=== PATIENT | male | born 1940 ===

== ENCOUNTER 2023-05-05 13:27 | Emergency (ER) | payer MEDICARE, SELFPAY ==
[2023-05-05 13:29] VITALS: BP 135/86
[2023-05-05 13:42] LABS: % Basophils 0.8 % (0-2); % Eosinophils 2.8 % (0-6); % Immature Granulocytes 0.8 % (0-0.5); % Lymphocytes 46.9 % (20.5-51.1); % Monocytes 11.5 % (1.7-9.3); % Neutrophils 37.2 % (42.2-75.2); Absolute Eosinophils 0.1 10^3/uL (0-0.7); Absolute Lymphocytes 2.4 10^3/uL (1.2-3.4); Absolute Monocytes 0.6 10^3/uL (0.1-0.6); Absolute Neutrophils 1.9 10^3/uL (1.4-6.5); Hematocrit 43.1 % (39.0-52.0); Hemoglobin 15.1 g/dL (13.0-18.0); Mean Corpuscular Hgb 30.4 pg (27.0-31.0); Mean Corpuscular Volume 86.7 fL (80.0-94.0); Mean Platelet Volume 9.3 fL (7.4-10.4); Nucleated Red Blood Cells % 0 % (-); Platelet Count 231 10^3/uL (130-400); Red Blood Cell Count 4.97 10^6/uL (4.70-6.10); Red Cell Dist. Width 14.2 % (11.5-14.5); White Blood Cell Count 5.1 10^3/uL (4.8-10.8)
--- NOTE | 2023-05-05 14:21 | ED.GENMED ---
History of Present Illness
General
Chief Complaint: Abdominal Symptoms
Time Seen by Provider: 05/05/23 14:21
Travel History
Have you had any contact with someone who has COVID-19?: No
Do you have any symptoms of coronavirus? Fever > 100 degrees, chills, cough, shortness of breath, sore throat, loss of taste or smell, muscle aches, or headache?: No
History of Present Illness
History of Present Illness:
83-year-old male with history of hypertension, hyperlipidemia, and att-gihhorp-stfihzwfj diabetes presents to the emergency department for evaluation of nausea, vomiting, and diarrhea for the past 2 to 3 days. Began after eating essentially
uncooked pancakes at a restaurant on Friday. Vomiting has improved however diarrhea is persistent. Denies any abdominal pain at the current time. No fevers or chills. Feeling short of breath today and generally fatigued.
Review of Systems
Review of Systems
Allergies reviewed?: Yes
All Other Systems: ROS reviewed and negative except as documented in HPI and ROS
Phy Exam
Physical Exam
Physical Exam:
GEN: Well appearing, NAD, WDWN
Eyes: PERRLA, EOMs intact, no scleral icterus
HENT: NCAT, oral mucosa moist
Lungs: CTAB, no wheezes, rales, rhonchi, normal chest wall excursion
Cardiac: RRR, no M/R/G, no peripheral edema. Radial pulses 2+ bilat
Abdomen: S, NT, ND, NABS, no masses or hepatosplenomegaly
Neuro: AO x 3
MSK: No gross deformity or ecchymosis.
Skin: No rashes, petechiae. Normal color, no pallor or jaundice.
Psych: Calm, cooperative, proper hygiene
Course
Orders/Labs/Results
Orders:
Orders
05/05/23 13:36
Basic Metabolic Panel Urgent
Complete Blood Count/With Diff Urgent
Lipase Urgent
05/05/23 14:37
0.9% Sodium Chloride 1000 ml [Nss] 1,000 ml IV BOLUS
05/05/23 15:33
Wbliq-Ieeo-Qxjhoug Urgent
Potassium Urgent
05/05/23 16:50
Stool Culture Urgent
DESI Source: Feces/Stool
Specimen Description:
Date Specimen was Collected: 05/05/23
Time Specimen was Collected: 16:43
Abnormal Lab Results
05/05/23 05/05/23
13:36 15:33
Immature Gran % 0.8 H %
(0-0.5)
Neutrophils % 37.2 L %
(42.2-75.2)
Monocytes % 11.5 H %
(1.7-9.3)
Potassium 3.3 L mmol/L
(3.5-5.1)
Chloride 108 H mmol/L
(98-107)
Carbon Dioxide 18 L mmol/L
(22-30)
BUN 35 H mg/dl
(9-20)
Glucose 268 H mg/dl
(70-99)
Direct Bilirubin 0.6 H mg/dl
(0.0-0.4)
05/05/23 13:36
05/05/23 15:33
Vital Signs
Initial and Last Documented VS:
Initial Vital Signs
Temp Pulse Resp BP Pulse Ox
97.7 F 98 18 135/86 98
05/05/23 13:29 05/05/23 13:29 05/05/23 13:29 05/05/23 13:29 05/05/23 13:29
Last Documented Vital Signs
Temp Pulse Resp BP Pulse Ox
97.7 F 88 16 133/81 96
05/05/23 13:29 05/05/23 17:00 05/05/23 17:00 05/05/23 17:00 05/05/23 17:00
MDM/Problems Addressed
MDM/Problems Addressed:
83-year-old male presents with symptoms consistent with acute gastroenteritis. Could be food based versus viral. Patient was able to provide a stool specimen for culture, did not feel it was appropriate to treat empirically given that he does
report some improvement in symptoms. Given 1 L normal saline for IV fluid resuscitation, tolerating p.o. fluids have discharge. No abdominal tenderness on exam to suggest need for CT imaging at this time
*Critical Care Note
Total Time (30-74mins, 75-104mins- exclusive of procedures): Not Applicable
ED Attending Note
-
Portions of this chart may have been created with voice recognition software.� Occasional wrong word or��sound alike� substitutions may have occurred due to the inherent limitations of voice recognition software.
Discharge Plan
Departure
Patient Disposition: Home (Routine Discharge)
Date of Disposition: 05/05/23
Time of Disposition: 17:06
Patient with high blood pressure during this ER visit?: No
Discharge Problem:
Gastroenteritis
Instructions: Nausea and Vomiting, Adult (DC)
Prescriptions:
New
ondansetron 4 mg tablet,disintegrating
4 mg PO TIDPRN PRN (Reason: nausea/vomiting) Qty: 10 0RF
No Action
omeprazole 40 mg Capsule,Delayed Release(Dr/Ec)
40 mg PO DAILY
glimepiride 4 mg Tablet
4 mg PO BID
rosuvastatin 10 mg Tablet
10 mg PO DAILY
metformin 500 mg Tablet
1,000 mg PO BID
tramadol 50 mg Tablet
50 mg PO Q6H
Patient Comments:
03/17/2023, patient filled this medication on 03/10/2023 for 20 tablets according to PDMP.
acetaminophen [Tylenol Extra Strength] 500 mg Tablet
1,000 mg PO Q6H
hydrochlorothiazide 25 mg Tablet
25 mg PO DAILY PRN (Reason: swelling)
ibuprofen 600 mg Tablet
600 mg PO Q6H
lisinopril 2.5 mg tablet
2.5 mg PO HS
Referrals:
Marcus Tidwell DO [Family Provider] -
Interventions
Interventions:
*Risk Screen - Suicide Last Done: 05/05/23 13:29
*General Assessment Last Done: 05/05/23 13:29
*Neglect/Abuse Screening Last Done: 05/05/23 13:29
ED- Fall Risk Assessment Last Done: 05/05/23 15:04
*ED COVID-19 Vaccine History Last Done: 05/05/23 13:29
*Nursing Disposition Last Done: 05/05/23 17:25
PX-Gbsiox-Ucutamfriu Assessment Last Done: 05/05/23 15:04
Discharge Date and Time
Discharge Date/Time: 05/05/23 17:27
[2023-05-05 14:25] VITALS: BMI 32.5
[2023-05-05 14:25] LABS: Blood Urea Nitrogen 35 mg/dl (9-20); Calcium 8.8 mg/dl (8.4-10.2); Carbon Dioxide 18 mmol/L (22-30); Chloride 108 mmol/L (98-107); Glucose 268 mg/dl (70-99); Sodium 136 mmol/L (135-145); eGFR > 60.00
[2023-05-05 14:41] LABS: Lipase 97 U/L (23-300)
[2023-05-05 15:02] VITALS: BP 139/77
[2023-05-05] MEDS: NSS 1000 IV (15:23)
[2023-05-05 15:59] LABS: ALT (SGPT) 23 U/L (0-50); AST (SGOT) 39 U/L (17-59); Alkaline Phosphatase 78 U/L (38-126); Direct Bilirubin 0.6 mg/dl (0.0-0.4); Potassium 3.3 mmol/L (3.5-5.1); Total Bilirubin 0.6 mg/dl (0.2-1.3)
[2023-05-05 16:00] VITALS: BP 130/80
[2023-05-05 17:00] VITALS: BP 133/81
== END 2023-05-05 17:27 | disposition home or self-care (01) ==
LOC: EMR 13:27
PROVIDERS: Physician Assistant; EMERGENCY PHYSICIAN Emergency Medicine; FAMILY PHYSICIAN Family Medicine
DX: K52.9 Noninfective gastroenteritis and colitis, unspecified (principal); I10 Essential (primary) hypertension; E78.5 Hyperlipidemia, unspecified; E11.9 Type 2 diabetes mellitus without complications
CPT/HCPCS: 99284; 96360; 80048; 80076; 83690; 84132; 85025; 87045; 87046; 87427

== ENCOUNTER 2023-06-06 22:14 | Inpatient (IN) | payer MEDICARE, SELFPAY ==
[2023-06-06 15:59] VITALS: BP 140/82
[2023-06-06 16:19] LABS: % Basophils 0.3 % (0-2); % Eosinophils 1.1 % (0-6); % Immature Granulocytes 0.4 % (0-0.5); % Lymphocytes 16.8 % (20.5-51.1); % Monocytes 8.3 % (1.7-9.3); % Neutrophils 73.1 % (42.2-75.2); Absolute Basophils 0.1 10^3/uL (0-0.2); Absolute Eosinophils 0.2 10^3/uL (0-0.7); Absolute Immature Granulocytes 0.1 10^3/uL (0-0.05); Absolute Lymphocytes 2.5 10^3/uL (1.2-3.4); Absolute Monocytes 1.2 10^3/uL (0.1-0.6); Hematocrit 39.5 % (39.0-52.0); Hemoglobin 13.6 g/dL (13.0-18.0); Mean Corp Hgb Conc. 34.4 g/dL (33.0-37.0); Mean Corpuscular Hgb 30.3 pg (27.0-31.0); Mean Platelet Volume 9.3 fL (7.4-10.4); Nucleated Red Blood Cells % 0 % (-); Platelet Count 251 10^3/uL (130-400); Red Blood Cell Count 4.49 10^6/uL (4.70-6.10); Red Cell Dist. Width 14.6 % (11.5-14.5)
[2023-06-06 16:35] LABS: ALT (SGPT) 11 U/L (0-50); AST (SGOT) 16 U/L (17-59); Albumin 4.3 g/dl (3.5-5.0); Alkaline Phosphatase 66 U/L (38-126); Blood Urea Nitrogen 16 mg/dl (9-20); Calcium 9.7 mg/dl (8.4-10.2); Carbon Dioxide 24 mmol/L (22-30); Chloride 97 mmol/L (98-107); Glucose 261 mg/dl (70-99); Sodium 135 mmol/L (135-145); Total Bilirubin 1.2 mg/dl (0.2-1.3); Total Protein 7.4 g/dl (6.3-8.2); eGFR > 60.00
[2023-06-06 16:48] LABS: Lipase 609 U/L (23-300)
[2023-06-06 17:18] VITALS: BP 144/87
[2023-06-06] MEDS: NSS 1000 IV ×3 (17:21→23:54)
[2023-06-06 17:25] VITALS: BMI 34.1
--- NOTE | 2023-06-06 17:31 | ED.GENMED ---
History of Present Illness
General
Chief Complaint: Abdominal Symptoms
Source: patient and records
Exam Limitations: none
Time Seen by Provider: 06/06/23 16:51
Nursing documentation reviewed up to this point in time: agreed with
Travel History
Have you had any contact with someone who has COVID-19?: No
Do you have any symptoms of coronavirus? Fever > 100 degrees, chills, cough, shortness of breath, sore throat, loss of taste or smell, muscle aches, or headache?: No
History of Present Illness
History of Present Illness:
83-year-old male presents with abdominal pain and vomiting seen here few weeks ago with diarrhea dehydration has had no fevers but he has had chills, has gallbladder removed, states he has been or keep any fluids down, pain is mild to moderate his
mid upper abdomen no chest pains, no problem urinating, states his lips feel dry
Past History
Past History
ED Past Medical History: GERD, Hypercholesterolemia and NIDDM; Negative HTN
ED Past Surgical History: Cholecystectomy
Social History
Tobacco: Non-smoker
Alcohol: None
Drug: None
Living: with family
Employment: Retired
Review of Systems
Review of Systems
All Other Systems: Not applicable
Constitutional: Reports fatigue and chills
EENT: Reports no symptoms
Respiratory: Reports no symptoms; Denies trouble breathing
Cardiac: Denies chest pain
ABD/GI: Reports abdominal pain, nausea and vomiting; Denies diarrhea or black stools
: Reports no symptoms
Musculoskeletal: Reports no symptoms
Skin: Reports no symptoms
Phy Exam
Physical Exam
Physical Exam:
Physical Exam
General: Uncomfortable appearing male
Neck: No jaw
Heart: s1/s2 regular rate and rhythm, no murmur. equal radial pulses.
Lungs: no acute respiratory distress. clear bilaterally
Abdomen: Soft mild left-sided tenderness
Neuro: alert and oriented. no focal neurological deficits
Skin: no rash
Psychiatric: well kept. interactive and cooperative
Extremities: no edema.
Course
Orders/Labs/Results
Orders:
Orders
06/06/23 16:03
EKG [Electrocardiogram (*1)] Urgent
Reason for Study: Abdominal Pain
EKG- Treatment ONCE
06/06/23 16:11
Complete Blood Count/With Diff Urgent
Comprehensive Metabolic Panel Urgent
Lipase Urgent
06/06/23 17:10
Blood Culture Q30M
DESI Source: Blood/Venous
Specimen Description:
06/06/23 17:20
0.9% Sodium Chloride 500 ml [Nss] 1,000 ml IV BOLUS
06/06/23 17:24
CT Abd/pel W Iv And Oral Contr Urgent
Comment:
Reason For Exam: pain fever vomiting lipase up
0.9% Sodium Chloride 1000 ml [Nss] 1,000 ml IV BOLUS
HYDROmorphone [Dilaudid] 0.5 mg IV NOW STA
Iohexol [Omnipaque] See Protocol PO NOW STA
Ondansetron Injectable [Zofran] 4 mg IV NOW STA
06/06/23 18:04
Lactic Acid Urgent
06/06/23 18:21
Blood Culture Q30M
DESI Source: Blood/Venous
Specimen Description:
06/06/23 19:59
0.9% Sodium Chloride 1000 ml [Nss] 1,000 ml IV BOLUS
Abnormal Lab Results
06/06/23
16:11
WBC 15.0 H 10^3/uL
(4.8-10.8)
RBC 4.49 L 10^6/uL
(4.70-6.10)
RDW 14.6 H %
(11.5-14.5)
Abs Immat Gran (auto) 0.1 H 10^3/uL
(0-0.05)
Absolute Neuts (auto) 11.0 H 10^3/uL
(1.4-6.5)
Absolute Monos (auto) 1.2 H 10^3/uL
(0.1-0.6)
Lymphocytes % 16.8 L %
(20.5-51.1)
Chloride 97 L mmol/L
(98-107)
Glucose 261 H mg/dl
(70-99)
AST 16 L U/L
(17-59)
Lipase 609 H U/L
(23-300)
06/06/23 16:11
06/06/23 16:11
Vital Signs
Initial and Last Documented VS:
Initial Vital Signs
Temp Pulse Resp BP Pulse Ox
97.4 F 97 16 140/82 98
06/06/23 15:59 06/06/23 15:59 06/06/23 15:59 06/06/23 15:59 06/06/23 15:59
Last Documented Vital Signs
Temp Pulse Resp BP Pulse Ox
98.1 F 112 25 178/106 93
06/06/23 19:30 06/06/23 21:15 06/06/23 21:15 06/06/23 21:00 06/06/23 21:18
*Critical Care Note
Total Time (30-74mins, 75-104mins- exclusive of procedures): Not Applicable
Update Note
Update Note:
Update, labs noted CT noted will require admission for pancreatitis
ED Attending Note
-
Portions of this chart may have been created with voice recognition software.� Occasional wrong word or��sound alike� substitutions may have occurred due to the inherent limitations of voice recognition software.
Discharge Plan
Departure
Patient Disposition: Admit
Date of Disposition: 06/06/23
Time of Disposition: 21:23
Presentation/result/management discussed w/ accepting MD/DO: Hospitalist
Patient with high blood pressure during this ER visit?: No
Condition: Good
Discharge Problem:
Acute pancreatitis
Prescriptions:
No Action
omeprazole 40 mg Capsule,Delayed Release(Dr/Ec)
40 mg PO DAILY
glimepiride 4 mg Tablet
4 mg PO BID
rosuvastatin 10 mg Tablet
10 mg PO DAILY
metformin 500 mg Tablet
1,000 mg PO BID
tramadol 50 mg Tablet
50 mg PO Q6H
Patient Comments:
03/17/2023, patient filled this medication on 03/10/2023 for 20 tablets according to PDMP.
acetaminophen [Tylenol Extra Strength] 500 mg Tablet
1,000 mg PO Q6H
hydrochlorothiazide 25 mg Tablet
25 mg PO DAILY PRN (Reason: swelling)
ibuprofen 600 mg Tablet
600 mg PO Q6H
lisinopril 2.5 mg tablet
2.5 mg PO HS
ondansetron 4 mg tablet,disintegrating
4 mg PO TIDPRN PRN (Reason: nausea/vomiting) Qty: 10 0RF
Referrals:
Marcus Tidwell DO [Family Provider] -
Interventions
Interventions:
*Risk Screen - Suicide Last Done: 06/06/23 15:59
*General Assessment Last Done: 06/06/23 15:59
*Neglect/Abuse Screening Last Done: 06/06/23 15:59
ED- Fall Risk Assessment Last Done: 06/06/23 17:02
*ED COVID-19 Vaccine History Last Done: 06/06/23 17:25
YZ-Zkwaxs-Baexqecuzg Assessment Last Done: 06/06/23 17:25
[2023-06-06 18:00] VITALS: BP 160/90
[2023-06-06] MEDS: DILAUDID 0.5 MG IV ×2 (18:09→23:24)
[2023-06-06] MEDS: ZOFRAN 4 MG IV (18:09)
[2023-06-06] MEDS: OMNIPAQUE 50 ML PO (18:14)
--- NOTE | 2023-06-06 18:15 | EDRN ---
POX was low 87-88% on room air so pt placed on oxygen at 2lpm via NC at this time.
[2023-06-06 19:00] VITALS: BP 164/85
[2023-06-06 19:05] LABS: Lactic Acid 1.3 mmol/L (0.7-2.0)
[2023-06-06 20:00] VITALS: BP 176/107
[2023-06-06 21:00] VITALS: BP 178/106
--- NOTE | 2023-06-06 22:04 | HPS.HSE ---
Family Physician
-
Family Physician: Marcus Tidwell
Chief Complaint
-
vomiting, abdominal pain
History of Present Illness
83-year-old male past medical history of coronary artery disease, hypertension, obstructive sleep apnea, hypercholesterolemia, GERD, diabetes, diabetic neuropathy, osteoarthritis, skin cancer status post multiple excisions, amaurosis fugax, Romero's
palsy, obesity, presents with vomiting for the past 2 days and abdominal pain bilaterally below his rib cage. He had chills but denies any fever. He denies any diarrhea. He has been a little bit constipated. He has not eaten at all in the past 2
days.
He had pancreatitis 6 years ago of unknown etiology. He also had his gallbladder taken out although he does not remember why. He denies any history of gallstones. He denies any alcohol use. He denies any new medications.
He denies smoking or any drugs.
Patient is scheduled for left knee surgery in the near future. He is supposed to take ibuprofen twice a day but daughter suspects he has been taking more than that.
Medical History
Past Medical History
Past Medical History: Reports Other (coronary artery disease, hypertension, obstructive sleep apnea, hypercholesterolemia, GERD, diabetes, diabetic neuropathy, osteoarthritis, skin cancer status post multiple excisions, amaurosis fugax, Romero's
palsy, obesity)
Past Surgical History: Reports Cholecystectomy and Orthopedic
Social History
Tobacco: Non-smoker
Alcohol: None
Drug: None
Family History
Family History: Not pertinent
Allergies / Home Medications
Allergies reflects when Allergies were last updated in [facility].
Home Medications with original date entered in [facility]
Allergy/Medication List:
Allergies
Allergy/AdvReac Type Severity Reaction Status Date / Time
Penicillins Allergy Rash Verified 06/06/23 15:59
Oxycodone AdvReac hallucinati Uncoded 06/06/23 15:59
ons
Home Medications
glimepiride 4 mg tablet 4 mg PO BID Diabetes 10/18/22
omeprazole 40 mg capsule,delayed release 40 mg PO DAILY Gastrointestinal Issue 10/18/22
rosuvastatin 10 mg tablet 10 mg PO DAILY High Cholesterol 01/01/23
acetaminophen 500 mg tablet (Tylenol Extra Strength) 1,000 mg PO BID 03/17/23
lisinopril 2.5 mg tablet 2.5 mg PO DAILY Blood Pressure 03/17/23
metformin 500 mg tablet 1,000 mg PO BID Diabetes 03/17/23
ondansetron 4 mg disintegrating tablet 4 mg PO TIDPRN PRN nausea/vomiting #10 tabs 05/05/23
ibuprofen 200 mg tablet (Advil) 400 mg PO BID 06/06/23
Review of Systems
-
History Source: Patient
A 12 point ROS was completed and negative except as noted: Yes
Constitutional: Reports No Symptoms
EENT: Reports No Symptoms
Respiratory: Reports No Symptoms
Cardiac: Reports No Symptoms
Abdomen/GI: Reports See HPI
: Reports No Symptoms
Musculoskeletal: Reports No Symptoms
Skin: Reports No Symptoms
Neurological: Reports No Symptoms
Endocrine: Reports No Symptoms
Hematologic/Lymphatic: Reports No Symptoms
Psych: Reports No Symptoms
Physical Exam
Vital Signs
Vital Signs
Temp Pulse Resp BP Pulse Ox
98.1 F 112 25 178/106 93
06/06/23 19:30 06/06/23 21:15 06/06/23 21:15 06/06/23 21:00 06/06/23 21:18
Physical Exam
General: Well Developed, Well Nourished and No Apparent Distress
HEENT: NormoCephalic, Moist mucous membranes and Atraumatic
Respiratory: Clear
Cardiac: S1/S2 and Regular Rhythm; No Murmur or Rub
GI: Soft, Non Distended, Normal Bowel Sounds and Tender (tender lower abdominal quadrants ); No Organomegaly
Rectal: Deferred by Provider
Musculoskeletal: No Clubbing, No Cyanosis and No Edema
Skin: No Rash
Neuro: Nonfocal/grossly intact
Laboratory Results
-
06/06/23 16:11
06/06/23 16:11
Laboratory Results
Lactic Acid Cancelled 06/06/23 18:38
Total Bilirubin 1.2 mg/dl (0.2-1.3) 06/06/23 16:11
AST 16 U/L (17-59) L 06/06/23 16:11
ALT 11 U/L (0-50) 06/06/23 16:11
Alkaline Phosphatase 66 U/L (38-126) 06/06/23 16:11
Lipase 609 U/L (23-300) H 06/06/23 16:11
Data Reviewed
-
Lab Data: Labs Reviewed by me
Old Records: Reviewed
Impression/Plan
-
IMPRESSION:
PLAN:
# Acute pancreatitis possibly secondary to NSAID use
# History of prior pancreatitis unclear etiology
-Lipase 600
-CT scan shows pancreatic tail acute interstitial pancreatitis
-N.p.o.
-IV fluids at 250 cc/hr
-Hold ibuprofen
-Zofran, Dilaudid as needed
-Check lipid panel
-Gi consulted
# Hyperglycemia
# Type 2 diabetes
-Hold metformin, glimepiride
-Insulin sliding scale
-Check A1c
History of cholecystectomy
Diabetic neuropathy
Coronary artery disease
Obstructive sleep apnea
Osteoarthritis
-Scheduled for left knee surgery in the near future
-Continue Tylenol
Essential hypertension
-Continue lisinopril
History of hypercholesterolemia
-Continue statin
GERD
-Continue omeprazole
Venous insufficiency
Nephrolithiasis
Chronic postnasal drip
Skin cancer status post multiple excisions
History of amaurosis fugax of left eye
History of Romero's palsy
Obesity
DNR/DNI
DVT prophylaxis�heparin
N.p.o.
[2023-06-06 22:46] LABS: HDL Cholesterol 44 mg/dl; LDL Cholesterol, Calculated 59 mg/dl; Total Cholesterol 124 mg/dl (50-199); Triglyceride 107 mg/dl (10-149); Very Low Density Lipoprotein 21 mg/dl (0-30)
--- NOTE | 2023-06-06 23:00 | PTCARENOTE ---
pt arrived to floor from ED via stretcher and ambulated to bed with a steady gait. Pt c/o 10/07 abdominal pain. BP elevated 160's/100's HR 110's. will administer pain medication and check BP again. pt oriented to room, call olivas with in reach. Will
review chart and follow plan of care.
[2023-06-06 23:08] VITALS: BMI 33.9
[2023-06-07 00:12] VITALS: BP 155/90
[2023-06-07] MEDS: DILAUDID 0.5 MG IV ×2 (03:05→08:52)
[2023-06-07 03:21] VITALS: BP 160/92
[2023-06-07] MEDS: NSS 1000 IV ×5 (03:31→20:32)
[2023-06-07] MEDS: ULTRAM 25 MG PO (04:43)
[2023-06-07 06:27] LABS: Glucose - Point of Care 213 mg/dl (70-99)
[2023-06-07 07:00] VITALS: BP 169/91
[2023-06-07] MEDS: NOVOLOG FLEXPEN-LOW RESISTANCE 2 UNITS SC ×2 (07:00→17:40)
[2023-06-07 07:19] LABS: % Basophils 0.3 % (0-2); % Eosinophils 1.3 % (0-6); % Immature Granulocytes 0.6 % (0-0.5); % Lymphocytes 15.1 % (20.5-51.1); % Monocytes 9.4 % (1.7-9.3); % Neutrophils 73.3 % (42.2-75.2); Absolute Eosinophils 0.2 10^3/uL (0-0.7); Absolute Immature Granulocytes 0.1 10^3/uL (0-0.05); Absolute Lymphocytes 2.3 10^3/uL (1.2-3.4); Absolute Monocytes 1.4 10^3/uL (0.1-0.6); Hematocrit 35.2 % (39.0-52.0); Mean Corp Hgb Conc. 34.1 g/dL (33.0-37.0); Mean Corpuscular Hgb 30.1 pg (27.0-31.0); Mean Corpuscular Volume 88.2 fL (80.0-94.0); Mean Platelet Volume 9.2 fL (7.4-10.4); Nucleated Red Blood Cells % 0 % (-); Platelet Count 235 10^3/uL (130-400); Red Blood Cell Count 3.99 10^6/uL (4.70-6.10); Red Cell Dist. Width 14.6 % (11.5-14.5)
[2023-06-07 07:45] LABS: ALT (SGPT) < 10 U/L (0-50); AST (SGOT) 18 U/L (17-59); Albumin 3.6 g/dl (3.5-5.0); Alkaline Phosphatase 68 U/L (38-126); Blood Urea Nitrogen 9 mg/dl (9-20); Calcium 8.5 mg/dl (8.4-10.2); Carbon Dioxide 25 mmol/L (22-30); Chloride 101 mmol/L (98-107); Estimated Creatinine Clearance > 125 ml/min; Glucose 216 mg/dl (70-99); Potassium 4.3 mmol/L (3.5-5.1); Sodium 131 mmol/L (135-145); Total Bilirubin 1.3 mg/dl (0.2-1.3); Total Protein 6.6 g/dl (6.3-8.2); eGFR > 60.00
[2023-06-07] MEDS: ZESTRIL 2.5 MG PO (08:51)
[2023-06-07] MEDS: CRESTOR 10 MG PO (08:51)
[2023-06-07] MEDS: PROTONIX 40 MG PO (08:51)
[2023-06-07] MEDS: TYLENOL 1000 MG PO ×2 (08:51→20:43)
[2023-06-07] MEDS: HEPARIN 5000 UNITS SC ×2 (08:52→20:39)
--- NOTE | 2023-06-07 09:25 | W.PN.HOSP.TC ---
Today's Communication/Plan
-
Continue IV fluids
Monitor hyponatremia
Continue sliding scale coverage may need to increase to moderate
Await GI input/unclear etiology to his pancreatitis
Changed to IV PPI
Assessment / Plan
Assessment / Plan
83-year-old male past medical history of coronary artery disease, hypertension, obstructive sleep apnea, hypercholesterolemia, GERD, diabetes, diabetic neuropathy, osteoarthritis, skin cancer status post multiple excisions, amaurosis fugax, Romero's
palsy, obesity, presents with vomiting for the past 2 days and abdominal pain bilaterally below his rib cage.� He had chills but denies any fever.� He denies any diarrhea.� He has been a little bit constipated.� He has not eaten at all in the past 2
days.
He had pancreatitis 6 years ago of unknown etiology.� He also had his gallbladder taken out although he does not remember why.� He denies any history of gallstones.� He denies any alcohol use.� He denies any new medications.
He denies smoking or any drugs.
Patient is scheduled for left knee surgery in the near future.� He is supposed to take ibuprofen twice a day but daughter suspects he has been taking more than that
# Acute pancreatitis possibly secondary to NSAID use
# History of prior pancreatitis unclear etiology/question underlying gastritis duodenitis?
-Lipase 600>>
-CT scan shows pancreatic tail acute interstitial pancreatitis
-N.p.o.
-IV fluids at 250 cc/hr
-Hold ibuprofen
-Zofran, Dilaudid as needed
-Check lipid panel/triglycerides only 107
-Gi consulted
# Hyperglycemia
# Type 2 diabetes
-Hold metformin, glimepiride
-Insulin sliding scale
-Check A1c
# Hyponatremia
-Will need to monitor given high fluid volumes required for treatment
-Daily BMP
History of cholecystectomy
Diabetic neuropathy
Coronary artery disease
Obstructive sleep apnea
Osteoarthritis
-Scheduled for left knee surgery in the near future
-Continue Tylenol
Essential hypertension
-Continue lisinopril
History of hypercholesterolemia
-Continue statin
GERD
-Continue omeprazole
Venous insufficiency
Nephrolithiasis
Chronic postnasal drip
Skin cancer status post multiple excisions
History of amaurosis fugax of left eye
History of Romero's palsy
Obesity
DNR/DNI
DVT prophylaxis�heparin
N.p.o.
Anticipated Discharge: 24 - 48 hours
Subjective/Interval History
-
Date of Service: June 07, 2023
Patient still with diffuse 8 out of 10 abdominal pain
Objective Data
-
Labs:
Laboratory Results
06/07/23
07:02
WBC 15.0 H
Hgb 12.0 L
Hct 35.2 L
Plt Count 235
Sodium 131 L
Potassium 4.3
Chloride 101
Carbon Dioxide 25
BUN 9
Creatinine 0.6 L
Glucose 216 H
Calcium 8.5
Total Bilirubin 1.3
AST 18
ALT < 10
Alkaline Phosphatase 68
Vital Signs:
Vital Signs
Temp Pulse Resp BP Pulse Ox
99.4 F 111 16 169/91 92
06/07/23 07:00 06/07/23 07:00 06/07/23 07:00 06/07/23 07:00 06/07/23 07:00
I&O
06/06/23 06/07/23 06/08/23
06:59 06:59 07:59
Output Total 300 / 300
Balance -300 / -300
Review of Systems
-
History Source: Patient
Constitutional: Reports No Appetite
EENT: Reports No Symptoms Reported
Respiratory: Reports No Symptoms
Cardiac: Reports No Symptoms
Abdomen/GI: Reports Abdominal Pain
Musculoskeletal: Reports No Symptoms
Skin: Reports No Symptoms
Physical Exam
-
General: Well Developed
HEENT: Normocephalic
Respiratory: Clear to Auscultation
Cardiac: Regular Rhythm
GI: Tender (Diffusely possibly more so epigastrium rating to back) and Distended
Skin: Warm
Neuro: Awake
Psych: Calm
Data Reviewed
-
Total Time Spent with Patient (in minutes): 56
CT Scan: Report Reviewed by me (Inflammatory changes in the tail of the pancreas consistent with acute pancreatitis/also fatty infiltration the liver)
Labs: Labs Reviewed by me (Last lipase was 680/leukocytosis continues at 15,000 hemoglobin stable at 12.0/sodium 131/LFTs within normal limits/lactic acid normal)
[2023-06-07 09:39] LABS: Glycohemoglobin (HgbA1c) 9.3 % (4.0-5.6)
[2023-06-07 09:45] LABS: Glucose - Point of Care 216 mg/dl (70-99)
--- NOTE | 2023-06-07 10:07 | CM ---
Met with patient at bedside; initial assessment completed
Pharmacy verified: [facility], [address]
Patient reported that he lives with his in a [place]; 1 step in; 13 steps down to basement; railings present; bathroom has walk-in shower and tub with shower; grab bar present
PLOF: reported that he is independent with ADLs, Ambulation, and Stairs; assists with medication management; Drives
DME: [employer]
Transportation: drove self to hospital; if he needs a ride home a friend will provide
SNF/Rehab/Home Care utilization history: none; Agreeable to home health services if recommended
Plan: discharge to home; case management will follow for any needs
--- NOTE | 2023-06-07 10:49 | CON.GI ---
Consultation
-
Date/Time Consultation Requested: 06/07/2023
Date/Time Consultation Performed: 06/07/2023
Performing Provider: Chidi Lr
Reason for Consultation: acute pancreatitis
Medical History
Chief Complaint / HPI
Chief Complaint: acute pancreatitis
History of Present Illness:
Patient is a 83-year-old male with history of CAD, HTN, LISETH, GERD, DM, diabetic neuropathy, Romero's palsy, and obesity who presents with severe abdominal pain associate with vomiting. The onset of his pain was acute which started about 2 days ago
,located in the LUQ. He had multiple vomiting episodes associate with this pain. Denies any new medications or alcohol. He had cholecystectomy done about 5 to 10 years ago. Reports he had acute pancreatitis remotely (about 10 to 15 years prior)
no etiology was found.
Past Medical History
Past Medical History: CAD, GERD, HTN, Hypercholesterolemia and NIDDM
Past Surgical History: Cholecystectomy
Social History
Tobacco: Non-Smoker
Alcohol: None
Family History
Family History: Reviewed & Not Pertinent
Allergies / Home Medications
Allergy/AdvReac Type Severity Reaction Status Date / Time
Penicillins Allergy Rash Verified 06/06/23 15:59
oxycodone AdvReac HALLUCINATI Verified 06/06/23 23:02
ONS
Medication Instructions Recorded
glimepiride 4 mg tablet 4 mg PO BID Diabetes 10/18/22
omeprazole 40 mg capsule,delayed 40 mg PO DAILY Gastrointestinal 10/18/22
release Issue
rosuvastatin 10 mg tablet 10 mg PO DAILY High Cholesterol 01/01/23
acetaminophen 500 mg tablet 1,000 mg PO BID 03/17/23
(Tylenol Extra Strength)
lisinopril 2.5 mg tablet 2.5 mg PO DAILY Blood Pressure 03/17/23
metformin 500 mg tablet 1,000 mg PO BID Diabetes 03/17/23
ondansetron 4 mg disintegrating 4 mg PO TIDPRN PRN nausea/vomiting 05/05/23
tablet #10 tabs
ibuprofen 200 mg tablet (Advil) 400 mg PO BID 06/06/23
Review of Systems
Vital Signs
Temp Pulse Resp BP Pulse Ox
99.4 F 111 16 169/91 92
06/07/23 07:00 06/07/23 07:00 06/07/23 07:00 06/07/23 07:00 06/07/23 07:00
Physical Exam
Exam
General: Well Developed and Well Nourished
HEENT: Normocephalic
Respiratory: Clear
Cardiac: S1/S2
GI: Soft, Non Distended and Tender (diffusely tender to palpation, most severe in LUQ)
Results
WBC 15.0 10^3/uL (4.8-10.8) H 06/07/23 07:02
Hgb 12.0 g/dL (13.0-18.0) L 06/07/23 07:02
Hct 35.2 % (39.0-52.0) L 06/07/23 07:02
MCV 88.2 fL (80.0-94.0) 06/07/23 07:02
Plt Count 235 10^3/uL (130-400) 06/07/23 07:02
Absolute Neuts (auto) 11.0 10^3/uL (1.4-6.5) H 06/07/23 07:02
Sodium 131 mmol/L (135-145) L 06/07/23 07:02
Potassium 4.3 mmol/L (3.5-5.1) 06/07/23 07:02
Chloride 101 mmol/L (98-107) 06/07/23 07:02
Carbon Dioxide 25 mmol/L (22-30) 06/07/23 07:02
BUN 9 mg/dl (9-20) 06/07/23 07:02
Creatinine 0.6 mg/dL (0.7-1.3) L 06/07/23 07:02
Calcium 8.5 mg/dl (8.4-10.2) 06/07/23 07:02
Total Bilirubin 1.3 mg/dl (0.2-1.3) 06/07/23 07:02
AST 18 U/L (17-59) 06/07/23 07:02
ALT < 10 U/L (0-50) 06/07/23 07:02
Alkaline Phosphatase 68 U/L (38-126) 06/07/23 07:02
Lipase 609 U/L (23-300) H 06/06/23 16:11
Diagnostic Image Results:
Prior GI Procedures:
EGD:
Colonoscopy:
Assessment / Plan
-
Patient is a 83-year-old male with history of CAD, HTN, LISETH, GERD, DM, diabetic neuropathy, Romero's palsy, and obesity who presents with severe abdominal pain associate with vomiting. Noted to have lipase in 600s and CT abd w/ IV contrast showing
inflammatory changes in tail of panc.
Impression / Rec:
1. Acute pancreatitis - this appears to be a second episode of acute pancreatitis as she reports he had acute pancreatitis remotely, about 15 years ago or so. Etiology is unclear at this time, as he denies alcohol and he is postcholecystectomy
about 5 to 10 years ago. There is no obvious metabolic causes such as triglyceride level > 1000 or hypercalcemia. He denies starting any new meds. He is diabetic but denies any recent worsening of his glucose control. Has mild leukocytosis and
low-grade fever which is likely SIRS from acute pancreatitis. He appears to be in fair amount of pain, will need to optimize his pain control. He is getting IVF (to 250 cc/h). This can be reduced 150 cc/h after 24 hours. He feels hungry despite
his pain, will start CLD. Will eventually need EUS for further eval which can be arranged as OP.
Total Time Spent with Patient (in minutes): 55
-
-
Thank you for consultation and allowing me to participate in the patient's care. Please call the environmental aide GI physician during the after hours with any questions or concerns.
[2023-06-07 11:36] LABS: Glucose - Point of Care 194 mg/dl (70-99)
[2023-06-07] MEDS: NOVOLOG FLEXPEN-LOW RESISTANCE 1 UNITS SC (11:39)
[2023-06-07] MEDS: ZOFRAN 4 MG IV (12:54)
[2023-06-07 15:00] VITALS: BP 191/107
[2023-06-07] MEDS: DILAUDID 0.25 MG IV (16:31)
[2023-06-07] MEDS: ROCEPHIN 1000 MG IV (16:59)
[2023-06-07] MEDS: STERILE WATER FOR INJECTION 10 ML IV (16:59)
[2023-06-07 17:36] LABS: Glucose - Point of Care 212 mg/dl (70-99)
[2023-06-07] MEDS: APRESOLINE 10 MG IV (17:41)
[2023-06-07] MEDS: TYLENOL 650 MG PO (17:42)
[2023-06-07 18:39] VITALS: BP 149/84
[2023-06-07] MEDS: PROTONIX IV 40 MG IV (20:33)
[2023-06-07] MEDS: NSS (PRESERVATIVE FREE) 10 ML IV (20:33)
[2023-06-07 21:58] LABS: Glucose - Point of Care 224 mg/dl (70-99)
[2023-06-07 23:00] VITALS: BP 151/88
[2023-06-08] MEDS: NSS 1000 IV (05:29)
[2023-06-08 07:00] VITALS: BP 169/101
--- NOTE | 2023-06-08 07:46 | W.PN.UPDATE ---
Addendum entered and electronically signed by Barrington Nunez MD 06/08/23 10:27:
Is also advised that his blood pressure is elevated and is suggested he double his lisinopril dosing and follow-up with his PCP for further management
Original Note:
Update Note
Progress Note Update
Patient had uneventful night has tolerated clear liquids and his abdominal pain is significantly less to the point now he is insisting on going home will agree to try full liquids but nothing past that is as responsibilities at home and will not
stay no matter what.
Presently his examination shows significant less distention and no significant abdominal tenderness labs are still pending. Will need to exclude going forward ibuprofen usage as he had been doing and told to come back to the emergency room should
his abdominal pain return in earnest like he had had prior.
[2023-06-08 07:49] LABS: ALT (SGPT) 11 U/L (0-50); AST (SGOT) 19 U/L (17-59); Albumin 3.6 g/dl (3.5-5.0); Alkaline Phosphatase 71 U/L (38-126); Blood Urea Nitrogen 5 mg/dl (9-20); Calcium 8.8 mg/dl (8.4-10.2); Carbon Dioxide 24 mmol/L (22-30); Chloride 104 mmol/L (98-107); Estimated Creatinine Clearance > 125 ml/min; Glucose 215 mg/dl (70-99); Lipase 197 U/L (23-300); Potassium 3.9 mmol/L (3.5-5.1); Sodium 136 mmol/L (135-145); Total Bilirubin 0.8 mg/dl (0.2-1.3); Total Protein 6.5 g/dl (6.3-8.2); eGFR > 60.00
[2023-06-08 08:33] LABS: Glucose - Point of Care 232 mg/dl (70-99)
[2023-06-08] MEDS: NOVOLOG FLEXPEN-LOW RESISTANCE 2 UNITS SC (08:56)
[2023-06-08] MEDS: TYLENOL 1000 MG PO (08:58)
[2023-06-08] MEDS: ZESTRIL 2.5 MG PO (08:58)
[2023-06-08] MEDS: NSS (PRESERVATIVE FREE) 10 ML IV (08:58)
[2023-06-08] MEDS: PROTONIX IV 40 MG IV (08:58)
[2023-06-08] MEDS: HEPARIN 5000 UNITS SC (08:58)
[2023-06-08] MEDS: CRESTOR 10 MG PO (08:58)
--- NOTE | 2023-06-08 09:57 | CM ---
Plan: discharge to home without services
Patient drove self to hospital and will drive self home
--- NOTE | 2023-06-08 10:27 | W.DCSUMMARY ---
Discharge Summary
Discharge Data
Date of Admission: 06/06/23
Date of Discharge: 06/08/23
-
Pending Results: No
Hospital Course
�83-year-old male with history of CAD, HTN, LISETH, GERD, DM, diabetic neuropathy, Romero's palsy, and obesity who presents with severe abdominal pain associate with vomiting.� The onset of his pain was acute which started about 2 days ago ,located in
the LU[facility].� He had multiple vomiting episodes associate with this pain.� Denies any new medications or alcohol.� He had cholecystectomy done about 5 to 10 years ago.� Reports he had acute pancreatitis remotely (about 10 to 15 years prior) no etiology
was found.
His presentation was that of diffuse abdominal pain within the first 24 hours the patient was able to tolerate clear liquids and tolerated overnight he required narcotic analgesia and no emesis he was noted to have periods of hypertensive urgency
possibly in relation to abdominal pain aggravating. He was seen by the GI service.
There is no discernible etiology to his abdominal pain as the patient does not imbibe of alcohol and had normal lipid panel and no gallbladder issues with his history of cholecystectomy without liver transaminase elevation on presentation.
Patient on date of his discharge was quite insistent on leaving after he had tolerated clear liquid and would agree to a full liquid diet prior to leaving but would not stay past that I informed him of the possibility that his symptoms since we do
not have a cause could return I have asked him also to increase his lisinopril dosing from 2.5 to 5 mg daily due to protracted periods of hypertension he is to follow-up with his primary care provider for further management.
Discharge diagnosis will be acute pancreatitis of the tail of the pancreas unclear etiology
Hypertensive urgency
Discharge Plan
-
Patient Disposition: Home (Routine Discharge)
Discharge Diagnosis/Procedures: Acute pancreatitis
Diet: Low Fat
Activity: No restrictions
Driving Restrictions: As prior to admission
Referrals:
Marcus Tidwell, [Family Provider] - in less than 1 week
Prescriptions:
New
pantoprazole [Protonix] 40 mg tablet,delayed release (DR/EC)
40 mg PO DAILY Qty: 30 0RF
lisinopril 2.5 mg Tablet
5 mg PO DAILY Qty: 30 0RF
Continued
omeprazole 40 mg Capsule,Delayed Release(Dr/Ec)
40 mg PO DAILY
glimepiride 4 mg Tablet
4 mg PO BID
rosuvastatin 10 mg Tablet
10 mg PO DAILY
metformin 500 mg Tablet
1,000 mg PO BID
acetaminophen [Tylenol Extra Strength] 500 mg Tablet
1,000 mg PO BID
ondansetron 4 mg tablet,disintegrating
4 mg PO TIDPRN PRN (Reason: nausea/vomiting) Qty: 10 0RF
Discontinued
lisinopril 2.5 mg tablet
2.5 mg PO DAILY
ibuprofen [Advil] 200 mg Tablet
400 mg PO BID
Discharge Orders:
Discharge Patient (As Directed); Ordered 06/08/23
Ordered By: Barrington Nunez
== END 2023-06-08 11:41 | disposition home or self-care (01) | DRG 439 ==
LOC: 3 WEST ACU 22:14
PROVIDERS: Emergency Medicine; ADMITTING PHYSICIAN Hospitalist; ATTENDING PHYSICIAN Internal Medicine; CONSULT PHYSICIAN Internal Medicine Gastroenterology; EMERGENCY PHYSICIAN Emergency Medicine; FAMILY PHYSICIAN Family Medicine
DX: K85.80 Other acute pancreatitis without necrosis or infection (principal); E87.1 Hypo-osmolality and hyponatremia; I16.0 Hypertensive urgency; E11.40 Type 2 diabetes mellitus with diabetic neuropathy, unspecified; E78.00 Pure hypercholesterolemia, unspecified; K21.9 Gastro-esophageal reflux disease without esophagitis; E11.65 Type 2 diabetes mellitus with hyperglycemia; I25.10 Atherosclerotic heart disease of native coronary artery without angina pectoris; I10 Essential (primary) hypertension; G47.33 Obstructive sleep apnea (adult) (pediatric); M19.90 Unspecified osteoarthritis, unspecified site; E66.9 Obesity, unspecified; K59.00 Constipation, unspecified; I87.2 Venous insufficiency (chronic) (peripheral); Z66 Do not resuscitate; Z90.49 Acquired absence of other specified parts of digestive tract; Z79.84 Long term (current) use of oral hypoglycemic drugs; Z85.828 Personal history of other malignant neoplasm of skin; Z88.5 Allergy status to narcotic agent; Z88.0 Allergy status to penicillin; Z68.33 Body mass index [BMI] 33.0-33.9, adult; Z87.442 Personal history of urinary calculi
CPT/HCPCS: 74177; 80053; 80061; 82962; 83036; 83605; 83690; 85025; 87040; 93005; 96361; 96374; 96375; 99285; Q9967

== ENCOUNTER → 2023-09-09 07:35 | Outpatient (REF) | payer MEDICARE, SELFPAY | LOC: EMG 07:35 | PROVIDERS: ATTENDING PHYSICIAN Orthopaedic Surgery Hand Surgery | DX: M25.531 Pain in right wrist (principal); R20.0 Anesthesia of skin; G56.01 Carpal tunnel syndrome, right upper limb | CPT/HCPCS: 95886; 95909 ==

== ENCOUNTER → 2023-09-29 07:29 | Outpatient (REF) | payer MEDICARE, SELFPAY ==
[2023-09-29 08:43] LABS: % Basophils 0.9 % (0-2); % Eosinophils 4.6 % (0-6); % Immature Granulocytes 0.7 % (0-0.5); % Monocytes 8.2 % (1.7-9.3); % Neutrophils 48.6 % (42.2-75.2); Absolute Basophils 0.1 10^3/uL (0-0.2); Absolute Eosinophils 0.3 10^3/uL (0-0.7); Absolute Lymphocytes 2.2 10^3/uL (1.2-3.4); Absolute Monocytes 0.5 10^3/uL (0.1-0.6); Absolute Neutrophils 2.9 10^3/uL (1.4-6.5); Hematocrit 38.8 % (39.0-52.0); Hemoglobin 12.9 g/dL (13.0-18.0); Mean Corp Hgb Conc. 33.2 g/dL (33.0-37.0); Mean Corpuscular Volume 90.2 fL (80.0-94.0); Mean Platelet Volume 9.9 fL (7.4-10.4); Nucleated Red Blood Cells % 0 % (-); Platelet Count 227 10^3/uL (130-400); Red Cell Dist. Width 13.8 % (11.5-14.5); White Blood Cell Count 5.9 10^3/uL (4.8-10.8)
[2023-09-29 09:18] LABS: Blood Urea Nitrogen 16 mg/dl (9-20); Calcium 9.4 mg/dl (8.4-10.2); Carbon Dioxide 26 mmol/L (22-30); Chloride 102 mmol/L (98-107); Glucose 224 mg/dl (70-99); Potassium 4.6 mmol/L (3.5-5.1); Sodium 137 mmol/L (135-145); eGFR > 60.00
== END ==
LOC: RCS 07:29
PROVIDERS: ATTENDING PHYSICIAN Orthopaedic Surgery Hand Surgery; FAMILY PHYSICIAN Family Medicine
DX: Z01.818 Encounter for other preprocedural examination (principal)
CPT/HCPCS: 36415; 80048; 85025; 93005